=== PATIENT | male | born 1970 | race Caucasian/White ===

== ENCOUNTER 2018-10-27 10:23 | Emergency (ER) | payer MEDICAID ==
[~2018-10-27] VITALS: Ht 180.3 cm; Wt 136.0 kg
[~2018-10-27 10:23] MED LIST: GABA-532 PO; IBUP-1986 PO
[2018-10-27 10:37] VITALS: BP 131/111
--- NOTE | 2018-10-27 10:48 | NUR ---
pt to xray via wheelchair
[2018-10-27] MEDS ORDERED: LIDOcaine 1% w/epiNEPHrine 1:200,000 30ml vial IM ONE (12:00)
[2018-10-27] MEDS ORDERED: TETanus/Pertussis (Acell)/Diphther VAC/PF (Tdap-Adult) 0.5ml syringe IM ONE (12:00)
[2018-10-27] MEDS ORDERED: CEPH-572 PO (12:09)
[2018-10-27] MEDS ORDERED: HYDR-4353 PO (12:09)
== END 2018-10-27 14:33 | disposition home or self-care (01) ==
LOC: ER 10:24
DX: S91.312A Laceration without foreign body, left foot, initial encounter (principal); E78.00 Pure hypercholesterolemia, unspecified; F10.99 Alcohol use, unspecified with unspecified alcohol-induced disorder; Z86.14 Personal history of Methicillin resistant Staphylococcus aureus infection; Z88.1 Allergy status to other antibiotic agents; Z79.899 Other long term (current) drug therapy; Y90.9 Presence of alcohol in blood, level not specified; W25.XXXA Contact with sharp glass, initial encounter; Y93.89 Activity, other specified; Y92.89 Other specified places as the place of occurrence of the external cause; Y99.8 Other external cause status
CPT/HCPCS: 12001; 73630; 90471; 99283

== ENCOUNTER 2018-11-22 17:29 | Emergency (ER) | payer MEDICAID ==
[~2018-11-22] VITALS: Ht 182.9 cm; Wt 159.1 kg
[2018-11-22] MEDS ORDERED: iohexol 350MG/ML 100ml bottle IV ONE (21:29)
[2018-11-22 22:16] LABS: BASOPHILS % (AUTO) 0.2 % (0-1); EOSINOPHILS # (AUTO) 0.1 X10'3 (0-0.9); HEMATOCRIT 46.4 % (42.0-52.0); HEMOGLOBIN 15.6 g/dl (14.0-17.9); LYMPHOCYTES # (AUTO) 2.2 X10'3 (1.1-4.8); LYMPHOCYTES % (AUTO) 27.3 % (21-51); MEAN CORPUSCULAR HEMOGLOBIN 29.6 PG (27.0-31.0); MEAN CORPUSCULAR HGB CONC 33.6 g/dL (33.0-36.5); MEAN PLATELET VOLUME 6.1 FL (7.4-10.4); MONOCYTES # (AUTO) 0.5 X10'3 (0-0.9); MONOCYTES % (AUTO) 6.4 % (2-12); NEUTROPHILS # (AUTO) 5.3 X10'3 (1.8-7.7); NEUTROPHILS % (AUTO) 65.1 % (42-75); PLATELET COUNT 164 X10'3 (140-440); RED BLOOD COUNT 5.28 X10'6 (4.70-6.10); RED CELL DISTRIBUTION WIDTH 14.8 % (11.5-14.5); WHITE BLOOD COUNT 8.1 X10'3 (4.5-11.0)
[2018-11-22 22:36] LABS: ALANINE AMINOTRANSFERASE 58 U/L (12-78); ALBUMIN 3.7 G/DL (3.4-5.0); ALBUMIN/GLOBULIN RATIO 0.8 (1.1-1.5); ALKALINE PHOSPHATASE 92 IU/L (46-116); ANION GAP 10 (8-16); ASPARTATE AMINO TRANSFERASE 45 U/L (10-37); BILIRUBIN,TOTAL 0.5 MG/DL (0.1-1.0); BLOOD UREA NITROGEN 15 MG/DL (7-18); BUN/CREATININE RATIO 12.9 (5.4-32.0); CALCIUM 8.1 MG/DL (8.5-10.1); CHLORIDE 106 MMOL/L (99-107); CREATININE 1.16 MG/DL (0.60-1.10); GLUCOSE 115 MG/DL (70-104); MAGNESIUM 2.1 MG/DL (1.5-2.4); POTASSIUM 3.8 MMOL/L (3.5-5.1); SODIUM 144 MMOL/L (135-145); TOTAL CARBON DIOXIDE 27.9 MMOL/L (24-32); TOTAL PROTEIN 8.3 G/DL (6.4-8.2); eGFR 67 ML/MIN
[2018-11-22 23:32] VITALS: BP 141/82
[2018-11-23] MEDS ORDERED: CEFD300C3 PO (00:24)
[2018-11-23] MEDS ORDERED: AZIT250T83 PO (00:24)
[2018-11-23] MEDS ORDERED: CefTRIAXone/D5W-Rocephin 1gm 50 ML IV ONE (00:25)
[2018-11-23] MEDS ORDERED: azithromycin 250mg tablet PO ONE (00:25)
[2018-11-23] MEDS ORDERED: CefTRIAXone 1000mg IM Kit (w/lidocaine diluent) IM ONE (00:35)
== END 2018-11-23 01:05 | disposition home or self-care (01) ==
LOC: ER 17:29
DX: J18.9 Pneumonia, unspecified organism (principal); F10.10 Alcohol abuse, uncomplicated; E78.00 Pure hypercholesterolemia, unspecified; Z88.1 Allergy status to other antibiotic agents; Z79.899 Other long term (current) drug therapy
CPT/HCPCS: 36415; 71046; 71275; 80053; 83735; 84484; 85025; 96372; 99284; J0696; Q9967

== ENCOUNTER 2019-03-23 15:07 | Emergency (ER) | payer MEDICAID ==
[~2019-03-23] VITALS: Ht 182.9 cm; Wt 160.9 kg
[2019-03-23 15:52] LABS: BASOPHILS % (AUTO) 0.2 % (0-1); EOSINOPHILS # (AUTO) 0.1 X10'3 (0-0.9); EOSINOPHILS % (AUTO) 1.2 % (0-6); HEMATOCRIT 43.1 % (42.0-52.0); HEMOGLOBIN 14.7 g/dl (14.0-17.9); LYMPHOCYTES # (AUTO) 1.4 X10'3 (1.1-4.8); LYMPHOCYTES % (AUTO) 20.8 % (21-51); MEAN CORPUSCULAR HEMOGLOBIN 28.1 PG (27.0-31.0); MEAN CORPUSCULAR HGB CONC 34.1 g/dL (33.0-36.5); MEAN CORPUSCULAR VOLUME 82.3 FL (78-98); MEAN PLATELET VOLUME 6.4 FL (7.4-10.4); MONOCYTES # (AUTO) 0.4 X10'3 (0-0.9); MONOCYTES % (AUTO) 6.5 % (2-12); NEUTROPHILS # (AUTO) 4.9 X10'3 (1.8-7.7); NEUTROPHILS % (AUTO) 71.3 % (42-75); PLATELET COUNT 117 X10'3 (140-440); RED BLOOD COUNT 5.23 X10'6 (4.70-6.10); RED CELL DISTRIBUTION WIDTH 15.6 % (11.5-14.5); WHITE BLOOD COUNT 6.9 X10'3 (4.5-11.0)
[2019-03-23 16:04] LABS: ALANINE AMINOTRANSFERASE 69 U/L (12-78); ALBUMIN 3.7 G/DL (3.4-5.0); ALBUMIN/GLOBULIN RATIO 0.9 (1.1-1.5); ALKALINE PHOSPHATASE 90 IU/L (46-116); ANION GAP 10 (8-16); ASPARTATE AMINO TRANSFERASE 48 U/L (10-37); BILIRUBIN,TOTAL 0.4 MG/DL (0.1-1.0); BLOOD UREA NITROGEN 14 MG/DL (7-18); BUN/CREATININE RATIO 12.7 (5.4-32.0); CALCIUM 8.2 MG/DL (8.5-10.1); CHLORIDE 106 MMOL/L (99-107); GLUCOSE 111 MG/DL (70-104); POTASSIUM 3.9 MMOL/L (3.5-5.1); SODIUM 142 MMOL/L (135-145); TOTAL CARBON DIOXIDE 26.1 MMOL/L (24-32); TOTAL PROTEIN 7.6 G/DL (6.4-8.2); eGFR 72 ML/MIN
[2019-03-23 16:24] LABS: D-DIMER 0.68 MG/L FEU (0-0.50)
[2019-03-23] MEDS ORDERED: iohexol 350MG/ML 100ml bottle IV ONE (17:05)
[2019-03-23] MEDS ORDERED: AMOX-422 PO (17:21)
[2019-03-23] MEDS ORDERED: ALBU8HFA PO (17:21)
[2019-03-23] MEDS ORDERED: PRED20TA PO (17:21)
[2019-03-23] MEDS ORDERED: ipratropium/albuterol 3ml nebule NEB ONE (18:00)
[2019-03-23 19:36] VITALS: BP 161/95
== END 2019-03-23 19:37 | disposition home or self-care (01) ==
LOC: ER 15:07
DX: J18.9 Pneumonia, unspecified organism (principal); E78.00 Pure hypercholesterolemia, unspecified; Z86.14 Personal history of Methicillin resistant Staphylococcus aureus infection; Z88.1 Allergy status to other antibiotic agents; Z79.899 Other long term (current) drug therapy
CPT/HCPCS: 36415; 71045; 71275; 80053; 84484; 85025; 85379; 93005; 94640; 99284; Q9967; 94760

== ENCOUNTER 2019-04-21 19:14 | Emergency (ER) | payer MEDICAID ==
[~2019-04-21] VITALS: Ht 182.9 cm; Wt 163.6 kg
[~2019-04-21 19:14] MED LIST changes: +ALBU8HFA PO
--- NOTE | 2019-04-21 19:48 | NUR ---
EWELINA SALGADO, PATIENT'S MOTHER, CALLED SAYING THAT SHE HAS BEEN IN CONTACT WITH [facility] AND THEY ARE WILLING TO ACCEPT THE PATIENT ONCE HE IS MEDICALLY CLEARED AND HAS "WHATEVER PRESCRIPTION HE NEEDS FOR DETOX" Addendum: 04/21/19 at 1949 by JUDITH PATIENT IS IN 18 AT THIS TIME NOT ASSIGNED TO A NURSE OR PICKED UP BY A PROVIDER AT THIS TIME
--- NOTE | 2019-04-21 20:19 | NUR ---
PT STATES HES ''READY TO CHANGE." HE DOESN'T WANT TO DRINK ANYMORE. HIS LAST DRINK WAS LAST NIGHT AT 10PM. HE STATES HE WANTS TO DETOX AND WANTS TO GO TO REHAB.
[2019-04-21] MEDS ORDERED: normal saline 1000ML IV soln IV ONE (20:55)
[2019-04-21] MEDS ORDERED: thiamine 100mg/ml 2ml inj. IV ONE (20:55)
[2019-04-21] MEDS ORDERED: folic acid 1mg/0.2ml inj IV ONE (20:55)
[2019-04-21] MEDS ORDERED: thiamine inj. 100 MG, folic acid inj. 2 MG in normal saline 100ml IV soln 100 ML IV SCH (20:59)
[2019-04-21] MEDS ORDERED: ondansetron/PF 4mg/2ml inj IV ONE (21:00)
[2019-04-21] MEDS ORDERED: thiamine inj. 100 MG, folic acid inj. 2 MG in normal saline 100ml IV soln 100 ML IV ONE (21:00)
[2019-04-21 21:27] LABS: CLARITY,URINE CLEAR (Clear); COLOR,URINE YELLOW (Yellow); GLUCOSE, URINE NEGATIVE (Neg); KETONES,URINE NEGATIVE (Neg); LEUKOCYTE ESTERASE ,URINE NEGATIVE (Neg); NITRITES, URINE NEGATIVE (Neg); OCCULT BLOOD,URINE SMALL (Neg); PROTEIN,URINE 100 mg/dl (Neg); UROBILINOGEN,URINE 0.2 E.U/dL (0.2-1.0)
[2019-04-21 21:36] LABS: UA COLLECTION TYPE CLN CATCH MIDSTREAM
[2019-04-21 21:38] LABS: BACTERIA,URINE NONE SEEN /HPF (Neg); MUCUS STRANDS MODERATE /LPF (Neg); RBC,URINE 0-2 /HPF (0-2); SQUAMOUS EPITHELIAL CELL,UR FEW /LPF (FEW); WBC,URINE 0-4 /HPF (0-4)
[2019-04-21 21:39] LABS: URINE AMPHETAMINE SCREEN NEGATIVE (Neg); URINE BARBITUATE SCREEN NEGATIVE (Neg); URINE BENZODIAZEPINES SCREEN NEGATIVE (Neg); URINE CANNABINOID SCREEN NEGATIVE (Neg); URINE COCAINE SCREEN NEGATIVE (Neg); URINE METHADONE SCREEN NEGATIVE (Neg); URINE OPIATE SCREEN NEGATIVE (Neg); URINE PHENCYCLIDINE SCREEN NEGATIVE (Neg)
[2019-04-21 22:00] LABS: BASOPHILS % (AUTO) 0.4 % (0-1); EOSINOPHILS # (AUTO) 0.1 X10'3 (0-0.9); EOSINOPHILS % (AUTO) 1.4 % (0-6); HEMATOCRIT 46.9 % (42.0-52.0); LYMPHOCYTES # (AUTO) 2.3 X10'3 (1.1-4.8); LYMPHOCYTES % (AUTO) 36.3 % (21-51); MEAN CORPUSCULAR HEMOGLOBIN 29.1 PG (27.0-31.0); MEAN CORPUSCULAR HGB CONC 34.1 g/dL (33.0-36.5); MEAN CORPUSCULAR VOLUME 85.4 FL (78-98); MEAN PLATELET VOLUME 6.1 FL (7.4-10.4); MONOCYTES # (AUTO) 0.4 X10'3 (0-0.9); MONOCYTES % (AUTO) 6.2 % (2-12); NEUTROPHILS # (AUTO) 3.5 X10'3 (1.8-7.7); NEUTROPHILS % (AUTO) 55.7 % (42-75); PLATELET COUNT 150 X10'3 (140-440); RED BLOOD COUNT 5.49 X10'6 (4.70-6.10); WHITE BLOOD COUNT 6.3 X10'3 (4.5-11.0)
[2019-04-21 22:15] LABS: ALANINE AMINOTRANSFERASE 69 U/L (12-78); ALBUMIN 3.6 G/DL (3.4-5.0); ALKALINE PHOSPHATASE 90 IU/L (46-116); ANION GAP 9 (8-16); ASPARTATE AMINO TRANSFERASE 76 U/L (10-37); BILIRUBIN,TOTAL 0.3 MG/DL (0.1-1.0); BLOOD UREA NITROGEN 11 MG/DL (7-18); BUN/CREATININE RATIO 9.6 (5.4-32.0); CHLORIDE 106 MMOL/L (99-107); CREATININE 1.14 MG/DL (0.60-1.10); GLUCOSE 89 MG/DL (70-104); POTASSIUM 3.8 MMOL/L (3.5-5.1); SODIUM 146 MMOL/L (135-145); TOTAL CARBON DIOXIDE 30.8 MMOL/L (24-32); TOTAL PROTEIN 7.3 G/DL (6.4-8.2); eGFR 69 ML/MIN
[2019-04-21 22:23] LABS: MAGNESIUM 1.7 MG/DL (1.5-2.4)
[2019-04-21 22:37] LABS: ETHANOL 0.394 GM/DL (0.0-0.010)
--- NOTE | 2019-04-22 | NUR ---
Pt resting comfortably, respirations normal, no s/s of distress.
--- NOTE | 2019-04-22 01:00 | NUR ---
Pt resting comfortably, respirations normal, no s/s of distress.
--- NOTE | 2019-04-22 02:00 | NUR ---
Pt resting comfortably, respirations normal, no s/s of distress.
--- NOTE | 2019-04-22 03:00 | NUR ---
Pt resting comfortably, respirations normal, no s/s of distress.
--- NOTE | 2019-04-22 04:00 | NUR ---
Pt brought to overflow.
--- NOTE | 2019-04-22 05:37 | NUR ---
Pt resting comfortably, respirations normal, no s/s of distress.
--- NOTE | 2019-04-22 06:31 | NUR ---
PACKET HAS BEEN FAXED TO [facility]
--- NOTE | 2019-04-22 06:33 | NUR ---
pt resting quietly in bed.
--- NOTE | 2019-04-22 07:28 | NUR ---
pt mother, Michelle Noble ([phone]), called to check on pt. States pt needs to call [facility] and start the process of medical detox if he still wants to pursue that. Pts mom said pt needs to be medically clear from [facility] to go to [place]. Will talk to [facility] this AM.
--- NOTE | 2019-04-22 08:13 | NUR ---
resting quietly in bed.
[2019-04-22] MEDS ORDERED: LORazepam 1 MG tablet PO ONE ×3 (08:30→21:00)
--- NOTE | 2019-04-22 08:35 | NUR ---
pt woke up breathing heavy, c/o severe anxiety. Stating he feels like he might , asking this RN if you can from anxiety. Pt laying down trying to calm himself. No PRN's ordered. Dr. Petersen made aware and ordered 2mg Ativan PO, med given. Pt told to try and take deep breaths and relax in bed to decrease anxiety. Pt laying in bed now deep breathing, lights off, pt wrapped in blanket.
--- NOTE | 2019-04-22 09:16 | NUR ---
pt woke up from resting and states the Ativan helped him a lot and states he feels like he can breathe again. pt now using the phone calling family.
--- NOTE | 2019-04-22 10:39 | NUR ---
pt parents at bedside. pts mom states pt was accepted at [facility] but they aren't able to take him until tomorrow AM. Apparently, for the facility to accept him, pt needs to remain "medically clear", under supervision to make sure he is not drinking, until tomorrow AM. pts mom requesting we keep him here under a hold until tomorrow AM when pts parents can pick him up from here and take him to Rehab. Plan to talk to MD and [facility].
--- NOTE | 2019-04-22 11:29 | NUR ---
sitting up on side of bed talking to pt beside him. calm and speaking appropriatly. RN talked to Eddy from [facility] and told him about pt being accepted at [place]. Eddy said he will talk to pt after lunch and then talk to Dr. Petersen about POC. Pt came up to nurses station asking about POC. RN told him Eddy would speak to him after lunch. Pt calm and agreeable.
--- NOTE | 2019-04-22 12:30 | NUR ---
laying in bed resting.
--- NOTE | 2019-04-22 13:36 | NUR ---
pt sitting on side of bed c/o anxiety. wondering when he can get out of here. RN reminded pt that Eddy with [facility] will speak to him after lunch. Dr. Petersen aware of anxiety. Another dose of Ativan ordered and given. Pt states that medication does wonders for him.
--- NOTE | 2019-04-22 14:33 | NUR ---
discussed pt's increased agitation with EDMD Petersen. New order for Ativan 2mg IV followed by Haldol 5mg IM if Ativan is ineffective.
[2019-04-22] MEDS ORDERED: LORazepam 2 mg/ml vial IM ONE (14:35)
[2019-04-22] MEDS ORDERED: haloperidol lactate 5mg/ml inj IM ONE (14:35)
--- NOTE | 2019-04-22 15:02 | NUR ---
pt continues to ask when he will speak to [facility] so he can go home. spoke with Eddy with [facility] and he said he is waiting for pts etoh level to go down before he talks to him. STAT etoh level ordered and obtained. Pt getting restless. Ativan 2mg IM ordered and given.
--- NOTE | 2019-04-22 15:26 | NUR ---
pt anxious and walking around, s/p IM Ativan administration. pt told Dr. Petersen his mother is going to come get him tonight. RN called pts mother to clarify what she said. mom said the pt told her that we were kicking him out of the hospital. pts mom told the pt that IF we kick him out she will pick him up, but the better plan is to let pt stay the night and she will pick him up in the AM and take him to [place]. Dr. Petersen aware and stated pt could stay the night in the hospital and then his mother pick him up in the AM and take him to [place].
--- NOTE | 2019-04-22 16:29 | NUR ---
pt states he will stay here until the AM when his mother picks him up to take him to [place]. States he's feeling better and much less anxious. pt states his sister gives him anxiety meds occationally from [place] [facility] [place] and states "the meds you give me are much better".
--- NOTE | 2019-04-22 17:37 | NUR ---
resting in bed, calm and cooperative. pt states he's bored.
--- NOTE | 2019-04-22 18:30 | NUR ---
Pt resting comfortably, no s/s of distress.
--- NOTE | 2019-04-22 18:43 | NUR ---
Received report and assumed pt care.
--- NOTE | 2019-04-22 19:05 | NUR ---
Two visitors at bedside.
--- NOTE | 2019-04-22 19:44 | NUR ---
Pt resting comfortably, states he feels "better" than last night. No statements of si or hi.
--- NOTE | 2019-04-22 21:00 | NUR ---
Pt resting quietly, respirations normal, no s/s of distress.
--- NOTE | 2019-04-22 22:12 | NUR ---
Pt resting quietly, respirations normal, no s/s of distress.
--- NOTE | 2019-04-23 | NUR ---
Pt resting quietly, respirations normal, no s/s of distress.
--- NOTE | 2019-04-23 01:00 | NUR ---
Pt resting quietly, respirations normal, no s/s of distress.
--- NOTE | 2019-04-23 02:00 | NUR ---
Pt resting quietly, respirations normal, no s/s of distress.
--- NOTE | 2019-04-23 02:56 | NUR ---
Pt resting quietly, respirations normal, no s/s of distress.
--- NOTE | 2019-04-23 04:00 | NUR ---
Pt resting quietly, respirations normal, no s/s of distress.
--- NOTE | 2019-04-23 05:00 | NUR ---
Pt resting quietly, respirations normal, no s/s of distress.
--- NOTE | 2019-04-23 05:43 | NUR ---
Pt resting quietly, respirations normal, no s/s of distress.
[2019-04-23 05:48] VITALS: BP 152/102
--- NOTE | 2019-04-23 06:35 | NUR ---
resting quietly in bed. Addendum: 04/23/19 at 0635 by MORGAN pt asked for the phone. pts mom called earlier during shift change, asked to call back after shift change. pt to be d/c'd this AM to [facility].
[2019-04-23] MEDS ORDERED: LORazepam 1 MG tablet PO ONE (07:00)
--- NOTE | 2019-04-23 07:00 | NUR ---
pt stating anxiety this AM about going to [place]. pt wants to get clean but a little anxious. RN spoke with pts mom on the phone. Plan for mom to come see pt about 0800 and mom and pt call [facility] to make sure pt can be admitted there this AM. Dr. Petersen aware of plan, will notify MD the result of the phone call to [place] and if d/c order is needed. MD aware of pts anxiety this AM and ordered Ativan, will administer.
[2019-04-23] MEDS ORDERED: CHLO25CA10 PO (08:34)
--- NOTE | 2019-04-23 08:42 | NUR ---
pt going back and forth about going to [place] for Rehab. Pt wanting to go then not wanting to go. Pt mom says if she picks him up for d/c she will only take him to [place] for Rehab. pt stated he didn't want to go to [place] then pts mom left. Pt is d/c ready. After talking to pt he said he would go to [place] "to listen to what they have to say". Pts mom said she could be back at the hospital to pick him up at 0930. pt then said he would just call his girlfriend to come get him.
--- NOTE | 2019-04-23 09:06 | NUR ---
pt is discharged and will be picked up by girlfrienNiurka rivas, RN called Niurka to verify she will pick him up. Niurka states she will take pt directly to [facility] when she picks him up. Pt states he will hear what [facility] has to say and see what they can do for him. Pt sent with a Rx for 5 days worth of Librium. Pt and girlfriend educated on Librium Rx and to only take one as needed for anxiety, both pt and girlfriend verbalized understanding.
== END 2019-04-23 10:28 | disposition home or self-care (01) ==
LOC: ER 19:15
DX: F10.129 Alcohol abuse with intoxication, unspecified (principal); E78.00 Pure hypercholesterolemia, unspecified; Z86.14 Personal history of Methicillin resistant Staphylococcus aureus infection; Z87.891 Personal history of nicotine dependence; Z72.89 Other problems related to lifestyle; Z88.1 Allergy status to other antibiotic agents; Z79.899 Other long term (current) drug therapy; Y90.0 Blood alcohol level of less than 20 mg/100 ml
CPT/HCPCS: 36415; 80053; 80305; 80320; 81001; 83735; 84443; 85025; 93005; 96372; 96374; 99284; J2060; J2405; J7030; 99285

== ENCOUNTER 2020-05-08 15:22 | Emergency (ER) | payer MEDICAID ==
[~2020-05-08] VITALS: Ht 182.9 cm; Wt 145.3 kg
[~2020-05-08 15:22] MED LIST changes: -ALBU8HFA PO; +CHLO25CA10 PO
[2020-05-08] MEDS ORDERED: magnesium oxide 400mg tablet PO ONE (16:10)
[2020-05-08] MEDS ORDERED: normal saline 1000ML IV soln IVB ONE (16:10)
[2020-05-08] MEDS ORDERED: thiamine 100mg tablet PO ONE (16:10)
[2020-05-08] MEDS ORDERED: phenobarbital inj 260 MG in normal saline 100ml IV soln 100 ML IV ONE (16:10)
[2020-05-08] MEDS ORDERED: phenobarbital inj 260 MG in normal saline 100ml IV soln 98 ML IV ONE (16:10)
[2020-05-08 16:32] LABS: BASOPHILS % (AUTO) 0.5 % (0-1); EOSINOPHILS % (AUTO) 0.4 % (0-6); HEMATOCRIT 43.8 % (42.0-52.0); HEMOGLOBIN 14.7 g/dl (14.0-17.9); LYMPHOCYTES # (AUTO) 1.6 X10'3 (1.1-4.8); LYMPHOCYTES % (AUTO) 24.7 % (21-51); MEAN CORPUSCULAR HEMOGLOBIN 27.9 PG (27.0-31.0); MEAN CORPUSCULAR HGB CONC 33.7 g/dL (33.0-36.5); MEAN CORPUSCULAR VOLUME 82.8 FL (78-98); MEAN PLATELET VOLUME 6.3 FL (7.4-10.4); MONOCYTES # (AUTO) 0.3 X10'3 (0-0.9); MONOCYTES % (AUTO) 4.4 % (2-12); NEUTROPHILS # (AUTO) 4.6 X10'3 (1.8-7.7); PLATELET COUNT 140 X10'3 (140-440); RED BLOOD COUNT 5.28 X10'6 (4.70-6.10); RED CELL DISTRIBUTION WIDTH 15.1 % (11.5-14.5); WHITE BLOOD COUNT 6.5 X10'3 (4.5-11.0)
[2020-05-08 16:48] LABS: ALANINE AMINOTRANSFERASE 63 U/L (12-78); ALBUMIN 3.8 G/DL (3.4-5.0); ALBUMIN/GLOBULIN RATIO 0.9 (1.1-1.5); ALKALINE PHOSPHATASE 105 IU/L (46-116); ANION GAP 12 (8-16); ASPARTATE AMINO TRANSFERASE 68 U/L (10-37); BILIRUBIN,TOTAL 0.5 MG/DL (0.1-1.0); BLOOD UREA NITROGEN 14 MG/DL (7-18); BUN/CREATININE RATIO 14.3 (5.4-32.0); CALCIUM 8.5 MG/DL (8.5-10.1); CHLORIDE 103 MMOL/L (99-107); CREATININE 0.98 MG/DL (0.60-1.10); GLUCOSE 124 MG/DL (70-104); POTASSIUM 3.9 MMOL/L (3.5-5.1); SODIUM 141 MMOL/L (135-145); TOTAL CARBON DIOXIDE 25.9 MMOL/L (24-32); TOTAL PROTEIN 8.2 G/DL (6.4-8.2); eGFR 82 ML/MIN
[2020-05-08 16:49] LABS: MAGNESIUM 2.2 MG/DL (1.5-2.4)
[2020-05-08 16:50] LABS: ETHANOL 0.359 GM/DL (0.0-0.010)
[2020-05-08] MEDS ORDERED: phenobarbital inj 130 MG in normal saline 100ml IV soln 100 ML IV ONE (17:25)
[2020-05-08 21:04] VITALS: BP 111/66
== END 2020-05-08 21:35 | disposition home or self-care (01) ==
LOC: ER 15:23
DX: F10.239 Alcohol dependence with withdrawal, unspecified (principal); F10.229 Alcohol dependence with intoxication, unspecified; E78.00 Pure hypercholesterolemia, unspecified; Z86.14 Personal history of Methicillin resistant Staphylococcus aureus infection; Z72.89 Other problems related to lifestyle; Z88.1 Allergy status to other antibiotic agents; Z79.899 Other long term (current) drug therapy; Y90.9 Presence of alcohol in blood, level not specified
CPT/HCPCS: 36415; 80053; 80320; 82948; 83735; 85025; 93005; 96365; 96367; 99285; J2560; J7030

== ENCOUNTER 2020-05-17 14:52 | Emergency (ER) | payer MEDICAID ==
[2020-05-18] MEDS ORDERED: GABA-534 PO (04:57)
== END 2020-05-17 17:16 | disposition left against medical advice (07) ==
LOC: ER 14:52
DX: F15.129 Other stimulant abuse with intoxication, unspecified (principal); Z53.21 Procedure and treatment not carried out due to patient leaving prior to being seen by health care provider

== ENCOUNTER 2020-05-18 04:40 | Emergency (ER) | payer MEDICAID ==
[~2020-05-18] VITALS: Ht 182.9 cm; Wt 159.1 kg
[2020-05-18] MEDS ORDERED: GABA-534 PO (04:57)
[2020-05-18] MEDS ORDERED: diazepam 5mg tablet PO ONE (05:00)
[2020-05-18] MEDS ORDERED: gabapentin 400mg capsule PO SCH (05:00)
[2020-05-18] MEDS ORDERED: gabapentin 400mg capsule PO ONE (05:00)
[2020-05-18 05:21] VITALS: BP 159/118
== END 2020-05-18 05:22 | disposition home or self-care (01) ==
LOC: ER 04:41
DX: F10.239 Alcohol dependence with withdrawal, unspecified (principal); E78.00 Pure hypercholesterolemia, unspecified; Z86.14 Personal history of Methicillin resistant Staphylococcus aureus infection; Z88.1 Allergy status to other antibiotic agents; Z79.899 Other long term (current) drug therapy; Y90.9 Presence of alcohol in blood, level not specified
CPT/HCPCS: 99283

== ENCOUNTER 2020-10-17 14:19 | Emergency (ER) | payer MEDICAID ==
[~2020-10-17] VITALS: Ht 182.9 cm; Wt 159.0 kg
[~2020-10-17 14:19] MED LIST changes: +GABA-534 PO
--- NOTE | 2020-10-17 15:08 | NUR ---
Pt in somulent but answers questions and follows commads. He is cooperative. C/O generalized pain and +nausea.
[2020-10-17] MEDS ORDERED: normal saline 1000ML IV soln IVB ONE (15:20)
[2020-10-17] MEDS ORDERED: ondansetron/PF 4mg/2ml inj IV ONE (15:20)
[2020-10-17] MEDS ORDERED: normal saline 1000ml 1,000 ML IV ONE (15:20)
[2020-10-17] MEDS ORDERED: magnesium 2GM in 50ml NS 50 ML IV ONE (15:25)
[2020-10-17 15:46] LABS: BASOPHILS # (AUTO) 0.1 X10'3 (0-0.2); BASOPHILS % (AUTO) 0.4 % (0-1); EOSINOPHILS % (AUTO) 0.1 % (0-6); HEMATOCRIT 42.9 % (42.0-52.0); HEMOGLOBIN 14.5 g/dl (14.0-17.9); LYMPHOCYTES # (AUTO) 1.7 X10'3 (1.1-4.8); LYMPHOCYTES % (AUTO) 11.4 % (21-51); MEAN CORPUSCULAR HEMOGLOBIN 27.1 PG (27.0-31.0); MEAN CORPUSCULAR HGB CONC 33.7 g/dL (33.0-36.5); MEAN CORPUSCULAR VOLUME 80.5 FL (78-98); MONOCYTES # (AUTO) 0.8 X10'3 (0-0.9); MONOCYTES % (AUTO) 5.3 % (2-12); NEUTROPHILS # (AUTO) 12.1 X10'3 (1.8-7.7); NEUTROPHILS % (AUTO) 82.8 % (42-75); PLATELET COUNT 272 X10'3 (140-440); RED BLOOD COUNT 5.33 X10'6 (4.70-6.10); RED CELL DISTRIBUTION WIDTH 13.6 % (11.5-14.5); WHITE BLOOD COUNT 14.6 X10'3 (4.5-11.0)
[2020-10-17 16:07] LABS: ALANINE AMINOTRANSFERASE 71 U/L (12-78); ALBUMIN 3.8 G/DL (3.4-5.0); ALBUMIN/GLOBULIN RATIO 0.9 (1.1-1.5); ALKALINE PHOSPHATASE 106 IU/L (46-116); ANION GAP 20 (8-16); BLOOD UREA NITROGEN 19 MG/DL (7-18); BUN/CREATININE RATIO 14.8 (5.4-32.0); CALCIUM 8.2 MG/DL (8.5-10.1); CHLORIDE 100 MMOL/L (99-107); CREATININE 1.28 MG/DL (0.60-1.10); GLUCOSE 100 MG/DL (70-104); LIPASE < 50 U/L (73-393); MAGNESIUM 2.3 MG/DL (1.5-2.4); SODIUM 140 MMOL/L (135-145); TOTAL CARBON DIOXIDE 19.9 MMOL/L (24-32); TOTAL PROTEIN 8.1 G/DL (6.4-8.2); eGFR 60 ML/MIN
[2020-10-17 16:08] LABS: ASPARTATE AMINO TRANSFERASE 100 U/L (10-37); POTASSIUM 4.3 MMOL/L (3.5-5.1)
[2020-10-17 16:09] LABS: ETHANOL 0.365 GM/DL (0.0-0.010)
[2020-10-17 19:01] LABS: COLOR,URINE YELLOW (Yellow); GLUCOSE, URINE NEGATIVE (Neg); KETONES,URINE 15 mg/dl (Neg); LEUKOCYTE ESTERASE ,URINE NEGATIVE (Neg); NITRITES, URINE NEGATIVE (Neg); OCCULT BLOOD,URINE MODERATE (Neg); PH,URINE 5.5 (4.8-8.0); PROTEIN,URINE 100 mg/dl (Neg); UROBILINOGEN,URINE 0.2 E.U/dL (0.2-1.0)
[2020-10-17] MEDS ORDERED: CHLO25CA10 PO (19:03)
[2020-10-17] MEDS ORDERED: PROM12.512 PO (19:03)
[2020-10-17 19:05] LABS: URINE AMPHETAMINE SCREEN NEGATIVE (Neg); URINE BARBITUATE SCREEN NEGATIVE (Neg); URINE BENZODIAZEPINES SCREEN NEGATIVE (Neg); URINE CANNABINOID SCREEN NEGATIVE (Neg); URINE COCAINE SCREEN NEGATIVE (Neg); URINE METHADONE SCREEN NEGATIVE (Neg); URINE OPIATE SCREEN NEGATIVE (Neg); URINE PHENCYCLIDINE SCREEN NEGATIVE (Neg)
[2020-10-17] MEDS ORDERED: chlordiazePOXIDE 25mg capsule PO ONE (19:05)
[2020-10-17 19:12] LABS: UA COLLECTION TYPE VOIDED
[2020-10-17 19:13] LABS: CLARITY,URINE SLIGHTLY CLOUDY (Clear)
[2020-10-17 19:17] LABS: BACTERIA,URINE NONE SEEN /HPF (Neg); MUCUS STRANDS MODERATE /LPF (Neg); RBC,URINE 0-2 /HPF (0-2); SQUAMOUS EPITHELIAL CELL,UR FEW /LPF (FEW); WBC,URINE 0-4 /HPF (0-4)
[2020-10-17 19:18] LABS: HYALINE CASTS 0-3 /LPF (NEGATIVE)
--- NOTE | 2020-10-17 19:30 | NUR ---
Pt given and understands d/c instructions. Ambulatory with a slow steady gait. MD aware of pt's heart rate.
[2020-10-17 19:35] VITALS: BP 128/80
== END 2020-10-17 19:37 | disposition home or self-care (01) ==
LOC: ER 14:20
DX: F10.929 Alcohol use, unspecified with intoxication, unspecified (principal); Z04.1 Encounter for examination and observation following transport accident; Y90.9 Presence of alcohol in blood, level not specified
CPT/HCPCS: 36415; 80053; 80305; 80320; 81001; 83690; 83735; 85025; 93005; 96365; 96366; 96375; 99285; J2405; J3475; J7030

== ENCOUNTER 2020-11-18 07:48 | Emergency (ER) | payer MEDICAID ==
[~2020-11-18] VITALS: Ht 182.9 cm; Wt 155.1 kg
[~2020-11-18 07:48] MED LIST changes: +PROM12.512 PO
[2020-11-18 08:51] LABS: BASOPHILS % (AUTO) 0.3 % (0-1); EOSINOPHILS # (AUTO) 0.1 X10'3 (0-0.9); EOSINOPHILS % (AUTO) 0.8 % (0-6); HEMATOCRIT 39.6 % (42.0-52.0); HEMOGLOBIN 13.3 g/dl (14.0-17.9); LYMPHOCYTES # (AUTO) 0.8 X10'3 (1.1-4.8); LYMPHOCYTES % (AUTO) 8.9 % (21-51); MEAN CORPUSCULAR HEMOGLOBIN 29.3 PG (27.0-31.0); MEAN CORPUSCULAR HGB CONC 33.7 g/dL (33.0-36.5); MEAN CORPUSCULAR VOLUME 86.8 FL (78-98); MEAN PLATELET VOLUME 6.4 FL (7.4-10.4); MONOCYTES # (AUTO) 0.8 X10'3 (0-0.9); MONOCYTES % (AUTO) 9.5 % (2-12); NEUTROPHILS # (AUTO) 6.9 X10'3 (1.8-7.7); NEUTROPHILS % (AUTO) 80.5 % (42-75); PLATELET COUNT 123 X10'3 (140-440); RED BLOOD COUNT 4.56 X10'6 (4.70-6.10); WHITE BLOOD COUNT 8.5 X10'3 (4.5-11.0)
[2020-11-18 08:58] LABS: ALANINE AMINOTRANSFERASE 53 U/L (12-78); ALBUMIN 3.2 G/DL (3.4-5.0); ALBUMIN/GLOBULIN RATIO 0.7 (1.1-1.5); ALKALINE PHOSPHATASE 115 IU/L (46-116); ANION GAP 10 (8-16); ASPARTATE AMINO TRANSFERASE 43 U/L (10-37); BILIRUBIN,TOTAL 0.6 MG/DL (0.1-1.0); BLOOD UREA NITROGEN 13 MG/DL (7-18); BUN/CREATININE RATIO 11.1 (5.4-32.0); CALCIUM 8.4 MG/DL (8.5-10.1); CHLORIDE 104 MMOL/L (99-107); CREATININE 1.17 MG/DL (0.60-1.10); GLUCOSE 102 MG/DL (70-104); POTASSIUM 3.9 MMOL/L (3.5-5.1); SODIUM 139 MMOL/L (135-145); TOTAL CARBON DIOXIDE 25.2 MMOL/L (24-32); TOTAL PROTEIN 7.8 G/DL (6.4-8.2); eGFR 66 ML/MIN
[2020-11-18 09:51] LABS: ANISOCYTOSIS 2+; PLATELET ESTIMATE DECREASED
[2020-11-18] MEDS ORDERED: AZIT500T9 PO (10:41)
[2020-11-18 10:54] LABS: D-DIMER 0.78 MG/L FEU (0-0.50)
[2020-11-18] MEDS ORDERED: iohexol 350MG/ML 100ml bottle IV ONE (11:14)
[2020-11-18] MEDS ORDERED: LORazepam 1 MG tablet PO ONE (11:25)
--- NOTE | 2020-11-18 11:31 | NUR ---
Spoke with Samson MONTOYA regarding heart rate of 160 beats/min, Samson MONTOYA gave verbal order for a repeat EKG.
--- NOTE | 2020-11-18 11:33 | NUR ---
Samson MONTOYA stated to take patient to CT first and then perform EKG.
[2020-11-18] MEDS ORDERED: normal saline 1000ml 1,000 ML IV ONE (11:55)
[2020-11-18] MEDS ORDERED: labetalol 20mg/4ml (5mg/ml) syringe IV ONE ×3 (13:15→15:50)
[2020-11-18 13:25] LABS: TROPONIN I < 0.04 NG/ML (0.0-0.05)
[2020-11-18] MEDS ORDERED: chlordiazePOXIDE 25mg capsule PO ONE (14:40)
[2020-11-18 15:53] LABS: ETHANOL < 0.010 GM/DL (0.0-0.010)
[2020-11-18] MEDS ORDERED: thiamine 100mg tablet PO ONE (16:00)
[2020-11-18] MEDS ORDERED: magnesium oxide 400mg tablet PO ONE (16:00)
[2020-11-18] MEDS ORDERED: normal saline 1000ML IV soln IVB ONE (16:00)
[2020-11-18] MEDS ORDERED: phenobarbital inj 260 MG in normal saline 100ml IV soln 98 ML IV ONE (16:00)
[2020-11-18] MEDS ORDERED: diltiazem 5mg/ml 5ml inj. IV ONE (16:00)
[2020-11-18] MEDS ORDERED: phenobarbital inj 260 MG in normal saline 100ml IV soln 100 ML IV ONE (16:00)
[2020-11-18] MEDS ORDERED: APIX5TAB3 PO (17:03)
[2020-11-18] MEDS ORDERED: SOTA80TA73 PO (17:03)
[2020-11-18 17:07] LABS: URINE AMPHETAMINE SCREEN NEGATIVE (Neg); URINE BARBITUATE SCREEN NEGATIVE (Neg); URINE BENZODIAZEPINES SCREEN POSITIVE (Neg); URINE CANNABINOID SCREEN POSITIVE (Neg); URINE COCAINE SCREEN NEGATIVE (Neg); URINE METHADONE SCREEN NEGATIVE (Neg); URINE OPIATE SCREEN NEGATIVE (Neg); URINE PHENCYCLIDINE SCREEN NEGATIVE (Neg)
[2020-11-18 17:24] VITALS: BP 104/80
--- NOTE | 2020-11-18 17:24 | NUR ---
PT DECIDED TO LEAVE AMA. THIS RN, AND LINDSAY PORTILLO SPOKE WITH PT EXTENSIVLY RE: HIS CURRENT DX, A-FIB, RAPID HEART RATE WITH IRRG, PNA, ALONG WITH ETOH WITHDRAWL AND REASONS TO STAY FOR CONTINUED MEDICATIONS AND MONITORING. PT STATES HE UNDERSTANDS RISKS UP TO INCLUDING . PT SIGNED AMA FORM
== END 2020-11-18 17:35 | disposition left against medical advice (07) ==
LOC: ER 07:49
DX: F10.239 Alcohol dependence with withdrawal, unspecified (principal); Z20.822 Contact with and (suspected) exposure to COVID-19; J18.9 Pneumonia, unspecified organism; I48.91 Unspecified atrial fibrillation; R04.2 Hemoptysis; R06.02 Shortness of breath; E78.00 Pure hypercholesterolemia, unspecified; Z86.14 Personal history of Methicillin resistant Staphylococcus aureus infection; Z72.89 Other problems related to lifestyle; Z88.1 Allergy status to other antibiotic agents; Z79.2 Long term (current) use of antibiotics; Z79.899 Other long term (current) drug therapy; Y90.0 Blood alcohol level of less than 20 mg/100 ml
CPT/HCPCS: 36415; 71045; 71275; 80053; 80305; 80320; 83735; 83880; 84145; 84484; 85008; 85025; 85379; 87635; 93005; 96361; 96365; 96375; 96376; 99285; C9803; J2560; J7030; Q9967; J3490

== ENCOUNTER 2020-11-20 13:42 | Inpatient (IN) | payer MEDICAID ==
[~2020-11-20] VITALS: Ht 182.9 cm; Wt 168.2 kg
[~2020-11-20 13:42] MED LIST changes: +APIX5TAB3 PO; +AZIT500T9 PO; +SOTA80TA73 PO
[2020-11-20] MEDS ORDERED: normal saline 1000ML IV soln IVB ONE (14:40)
[2020-11-20] MEDS ORDERED: acetaminophen 325mg tablet PO ONE (14:40)
[2020-11-20 14:46] LABS: BASOPHILS % (AUTO) 0.2 % (0-1); EOSINOPHILS # (AUTO) 0.2 X10'3 (0-0.9); EOSINOPHILS % (AUTO) 1.6 % (0-6); HEMATOCRIT 38.7 % (42.0-52.0); HEMOGLOBIN 13.1 g/dl (14.0-17.9); LYMPHOCYTES # (AUTO) 1.1 X10'3 (1.1-4.8); LYMPHOCYTES % (AUTO) 11.2 % (21-51); MEAN CORPUSCULAR HEMOGLOBIN 29.5 PG (27.0-31.0); MEAN CORPUSCULAR HGB CONC 33.9 g/dL (33.0-36.5); MEAN PLATELET VOLUME 6.9 FL (7.4-10.4); MONOCYTES # (AUTO) 1.2 X10'3 (0-0.9); MONOCYTES % (AUTO) 12.4 % (2-12); NEUTROPHILS # (AUTO) 7.3 X10'3 (1.8-7.7); NEUTROPHILS % (AUTO) 74.6 % (42-75); PLATELET COUNT 217 X10'3 (140-440); RED BLOOD COUNT 4.45 X10'6 (4.70-6.10); RED CELL DISTRIBUTION WIDTH 18.2 % (11.5-14.5); WHITE BLOOD COUNT 9.8 X10'3 (4.5-11.0)
[2020-11-20 14:59] LABS: ALANINE AMINOTRANSFERASE 39 U/L (12-78); ALBUMIN/GLOBULIN RATIO 0.6 (1.1-1.5); ALKALINE PHOSPHATASE 94 IU/L (46-116); ANION GAP 11 (8-16); ASPARTATE AMINO TRANSFERASE 31 U/L (10-37); BILIRUBIN,TOTAL 1.1 MG/DL (0.1-1.0); BLOOD UREA NITROGEN 9 MG/DL (7-18); BUN/CREATININE RATIO 7.8 (5.4-32.0); CALCIUM 8.9 MG/DL (8.5-10.1); CHLORIDE 100 MMOL/L (99-107); CREATININE 1.15 MG/DL (0.60-1.10); GLUCOSE 104 MG/DL (70-104); POTASSIUM 3.6 MMOL/L (3.5-5.1); SODIUM 138 MMOL/L (135-145); TOTAL CARBON DIOXIDE 27.4 MMOL/L (24-32); TOTAL PROTEIN 7.8 G/DL (6.4-8.2); eGFR 68 ML/MIN
[2020-11-20 15:00] LABS: D-DIMER 0.82 MG/L FEU (0-0.50); PARTIAL THROMBOPLASTIN TIME 36 SECONDS (22-32)
[2020-11-20 15:28] LABS: LIPASE 81 U/L (73-393); MAGNESIUM 1.9 MG/DL (1.5-2.4)
[2020-11-20 15:30] LABS: ETHANOL < 0.010 GM/DL (0.0-0.010)
[2020-11-20] MEDS ORDERED: iohexol 350MG/ML 100ml bottle IV ONE (16:36)
--- NOTE | 2020-11-20 16:40 | NUR ---
TO CT VIA WC
[2020-11-20] MEDS ORDERED: CefTRIAXone/D5W-Rocephin 1gm 50 ML IV ONE (17:20)
[2020-11-20 17:23] LABS: URINE AMPHETAMINE SCREEN NEGATIVE (Neg); URINE BARBITUATE SCREEN POSITIVE (Neg); URINE BENZODIAZEPINES SCREEN POSITIVE (Neg); URINE CANNABINOID SCREEN POSITIVE (Neg); URINE COCAINE SCREEN NEGATIVE (Neg); URINE METHADONE SCREEN NEGATIVE (Neg); URINE OPIATE SCREEN NEGATIVE (Neg); URINE PHENCYCLIDINE SCREEN NEGATIVE (Neg)
[2020-11-20] MEDS ORDERED: magnesium hydroxide 30ml (MOM) UD suspension PO PRN (17:40)
[2020-11-20] MEDS ORDERED: mag hydrox/Alum hydrox/simeth 30ml oral suspension PO PRN (17:40)
[2020-11-20] MEDS ORDERED: acetaminophen 325mg tablet PO PRN (17:40)
[2020-11-20] MEDS ORDERED: ondansetron/PF 4mg/2ml inj IV PRN (17:40)
[2020-11-20] MEDS ORDERED: morphine 2 MG/ML inj. syringe IV PRN (17:40)
[2020-11-20] MEDS ORDERED: APIX5TAB3 PO (18:16)
[2020-11-20] MEDS ORDERED: CHLO25CA10 PO (18:16)
[2020-11-20] MEDS ORDERED: AZIT500T9 PO (18:16)
[2020-11-20] MEDS ORDERED: SOTA80TA46 PO (18:16)
[2020-11-20] MEDS ORDERED: IBUP-1986 PO (18:16)
[2020-11-20] MEDS: normal saline 1000ml 1,000 ML IV SCH (18:27)
[2020-11-20] MEDS ORDERED: chlordiazePOXIDE 25mg capsule PO PRN (19:55)
[2020-11-20] MEDS: docusate sod 100mg capsule PO SCH (20:00)
--- NOTE | 2020-11-20 20:07 | NUR ---
PAGER ID: [phone] MESSAGE: [phone] RE: BED 11 JOS NEEDS SOMETHING FOR COUGH PLEASE.
[2020-11-20] MEDS ORDERED: albuterol 2.5 MG/3 ML nebule NEB PRN (20:10)
[2020-11-20] MEDS: apixaban 5mg tablet PO SCH (20:25)
[2020-11-20] MEDS: sotalol 80mg tablet PO SCH (20:25)
[2020-11-20] MEDS: cefepime 2g/NS 100ml ADVANTAGE 100 ML IV SCH (20:27)
[2020-11-20] MEDS ORDERED: guaiFENesin 200 MG/10 ML oral syrup UD cup PO PRN (20:30)
[2020-11-20] MEDS: benzonatate 100mg capsule PO PRN (21:25)
[2020-11-20] MEDS: chlordiazePOXIDE 5mg capsule PO PRN (21:26)
[2020-11-21] MEDS: normal saline 1000ml 1,000 ML IV SCH (03:42)
[2020-11-21] MEDS: HYDROcodone/acetaminophen 5mg/325mg tablet PO PRN ×3 (03:53→22:07)
[2020-11-21 04:19] LABS: BASOPHILS % (AUTO) 0.3 % (0-1); EOSINOPHILS # (AUTO) 0.3 X10'3 (0-0.9); EOSINOPHILS % (AUTO) 3.1 % (0-6); HEMATOCRIT 36.7 % (42.0-52.0); HEMOGLOBIN 12.4 g/dl (14.0-17.9); LYMPHOCYTES % (AUTO) 12.5 % (21-51); MEAN CORPUSCULAR HEMOGLOBIN 29.1 PG (27.0-31.0); MEAN CORPUSCULAR HGB CONC 33.8 g/dL (33.0-36.5); MEAN CORPUSCULAR VOLUME 86.3 FL (78-98); MEAN PLATELET VOLUME 6.7 FL (7.4-10.4); MONOCYTES # (AUTO) 1.3 X10'3 (0-0.9); MONOCYTES % (AUTO) 14.9 % (2-12); NEUTROPHILS # (AUTO) 5.8 X10'3 (1.8-7.7); NEUTROPHILS % (AUTO) 69.2 % (42-75); PLATELET COUNT 224 X10'3 (140-440); RED BLOOD COUNT 4.26 X10'6 (4.70-6.10); RED CELL DISTRIBUTION WIDTH 18.3 % (11.5-14.5); WHITE BLOOD COUNT 8.4 X10'3 (4.5-11.0)
[2020-11-21 04:25] LABS: ALANINE AMINOTRANSFERASE 31 U/L (12-78); ALBUMIN 2.6 G/DL (3.4-5.0); ALBUMIN/GLOBULIN RATIO 0.6 (1.1-1.5); ALKALINE PHOSPHATASE 85 IU/L (46-116); ANION GAP 14 (8-16); ASPARTATE AMINO TRANSFERASE 23 U/L (10-37); BILIRUBIN,TOTAL 0.8 MG/DL (0.1-1.0); BLOOD UREA NITROGEN 12 MG/DL (7-18); BUN/CREATININE RATIO 12.1 (5.4-32.0); CALCIUM 8.3 MG/DL (8.5-10.1); CHLORIDE 103 MMOL/L (99-107); CREATININE 0.99 MG/DL (0.60-1.10); GLUCOSE 105 MG/DL (70-104); POTASSIUM 3.2 MMOL/L (3.5-5.1); SODIUM 140 MMOL/L (135-145); TOTAL CARBON DIOXIDE 22.9 MMOL/L (24-32); TOTAL PROTEIN 7.1 G/DL (6.4-8.2); eGFR 80 ML/MIN
[2020-11-21] MEDS: temazepam 15mg capsule PO SCH ×2 (05:44→21:00)
[2020-11-21] MEDS: cefepime 2g/NS 100ml ADVANTAGE 100 ML IV SCH ×2 (07:44→20:00)
[2020-11-21] MEDS: apixaban 5mg tablet PO SCH ×2 (07:44→20:00)
[2020-11-21] MEDS: ibuprofen tablet 400 MG TABLET PO SCH ×3 (07:44→18:07)
[2020-11-21] MEDS: docusate sod 100mg capsule PO SCH ×2 (07:45→20:00)
[2020-11-21] MEDS: sotalol 80mg tablet PO SCH ×2 (08:00→20:00)
[2020-11-21] MEDS ORDERED: enoxaparin 40mg/0.4ml syringe SUBCUT SCH (08:00)
[2020-11-21] MEDS ORDERED: potassium Cl 20 mEq SR tablet PO STA (13:35)
[2020-11-21] MEDS ORDERED: ondansetron 4mg rapidly disintigrating tab PO PRN (14:25)
[2020-11-21] MEDS: LORazepam 0.5 MG tablet PO PRN (18:07)
[2020-11-21] MEDS: lactobacillus rhamnosus 10,000 MMU CELLS/CAPSULE PO SCH (20:00)
[2020-11-21] MEDS ORDERED: temazepam 15mg capsule PO SCH (21:00)
[2020-11-22] MEDS: HYDROcodone/acetaminophen 5mg/325mg tablet PO PRN ×2 (03:01→09:09)
[2020-11-22] MEDS: LORazepam 0.5 MG tablet PO PRN ×2 (05:58→13:30)
--- NOTE | 2020-11-22 07:05 | NUR ---
PT PLACED ON MONITOR AND THEN KEEPS TAKING MONITOR LEADS AND SPO2 MONITOR OFF.
[2020-11-22] MEDS ORDERED: furosemide 10 MG/1 ML 10ml inj IV ONE (08:40)
[2020-11-22] MEDS: ibuprofen tablet 400 MG TABLET PO SCH ×2 (09:08→13:31)
[2020-11-22] MEDS: benzonatate 100mg capsule PO PRN (09:08)
[2020-11-22] MEDS: apixaban 5mg tablet PO SCH (09:08)
[2020-11-22] MEDS: lactobacillus rhamnosus 10,000 MMU CELLS/CAPSULE PO SCH (09:08)
[2020-11-22] MEDS: docusate sod 100mg capsule PO SCH (09:08)
[2020-11-22] MEDS: sotalol 80mg tablet PO SCH (09:13)
[2020-11-22] MEDS: chlordiazePOXIDE 5mg capsule PO PRN (09:18)
--- NOTE | 2020-11-22 09:32 | NUR ---
Patient in room ED 11. I have received report from carley Sanders and had the opportunity to ask questions and assume patient care.
[2020-11-22 10:09] LABS: BASOPHILS % (AUTO) 0.3 % (0-1); EOSINOPHILS # (AUTO) 0.3 X10'3 (0-0.9); EOSINOPHILS % (AUTO) 3.9 % (0-6); HEMATOCRIT 38.1 % (42.0-52.0); HEMOGLOBIN 13.1 g/dl (14.0-17.9); LYMPHOCYTES # (AUTO) 0.7 X10'3 (1.1-4.8); LYMPHOCYTES % (AUTO) 9.3 % (21-51); MEAN CORPUSCULAR HGB CONC 34.5 g/dL (33.0-36.5); MEAN CORPUSCULAR VOLUME 84.1 FL (78-98); MEAN PLATELET VOLUME 6.2 FL (7.4-10.4); MONOCYTES # (AUTO) 0.9 X10'3 (0-0.9); NEUTROPHILS # (AUTO) 5.8 X10'3 (1.8-7.7); NEUTROPHILS % (AUTO) 74.5 % (42-75); PLATELET COUNT 300 X10'3 (140-440); RED BLOOD COUNT 4.53 X10'6 (4.70-6.10); RED CELL DISTRIBUTION WIDTH 17.6 % (11.5-14.5); WHITE BLOOD COUNT 7.7 X10'3 (4.5-11.0)
[2020-11-22 10:28] LABS: ALANINE AMINOTRANSFERASE 30 U/L (12-78); ALBUMIN 2.7 G/DL (3.4-5.0); ALBUMIN/GLOBULIN RATIO 0.6 (1.1-1.5); ALKALINE PHOSPHATASE 84 IU/L (46-116); ANION GAP 9 (8-16); ASPARTATE AMINO TRANSFERASE 20 U/L (10-37); BILIRUBIN,TOTAL 0.7 MG/DL (0.1-1.0); BLOOD UREA NITROGEN 13 MG/DL (7-18); BUN/CREATININE RATIO 12.5 (5.4-32.0); CALCIUM 8.7 MG/DL (8.5-10.1); CHLORIDE 104 MMOL/L (99-107); CREATININE 1.04 MG/DL (0.60-1.10); GLUCOSE 117 MG/DL (70-104); POTASSIUM 3.8 MMOL/L (3.5-5.1); SODIUM 137 MMOL/L (135-145); TOTAL CARBON DIOXIDE 24.3 MMOL/L (24-32); TOTAL PROTEIN 7.6 G/DL (6.4-8.2); eGFR 76 ML/MIN
[2020-11-22] MEDS: cefepime 2g/NS 100ml ADVANTAGE 100 ML IV SCH (10:50)
--- NOTE | 2020-11-22 12:11 | NUR ---
Patient in room YIN 341. I have received report from ANDREA VAN FROM ER and had the opportunity to ask questions and assume patient care.
--- NOTE | 2020-11-22 12:15 | NUR ---
Report given to ANDREA Caceres on the Surg floor.
[2020-11-22 13:00] VITALS: BP 128/85
--- NOTE | 2020-11-22 13:38 | NUR ---
PAGER ID: [phone] MESSAGE: [phone] Shiv Lowe: lab has not even sent the test out yet. It will be sent out today, they said to expect results late Sunday. [email or web address] [phone]
[2020-11-22] MEDS ORDERED: PRED10TA23 PO (14:14)
[2020-11-22] MEDS ORDERED: ALBU8HFA PO (14:14)
[2020-11-22] MEDS ORDERED: LEVO750T46 PO (14:14)
--- NOTE | 2020-11-22 19:12 | NUR ---
PATIENT STABLE AND APPROPRIATE FOR DISCHARGE, IV REMOVED, EDUCATION GIVEN, NEW MEDS E-SCRIPTED TO PREFERRED PHARMACY, ALL BELONGINGS SENT WITH PATIENT, PATIENT TAKEN TO LOBBY BY WHEELCHAIR WHERE FAMILY MEMBER WILL TAKE PATIENT HOME
== END 2020-11-22 15:25 | disposition home or self-care (01) | DRG 720 ==
LOC: ER 13:43 → ED HOLD 17:43 → SUR 3N 11-22 12:20
PROVIDERS: ADMIT Family Medicine; ATTEND Family Medicine
PROC: B32T1ZZ Computerized Tomography (CT Scan) of Left Pulmonary Artery using Low Osmolar Contrast (ICD-10-PCS; principal; 2020-11-20)
PROC: B3201ZZ Computerized Tomography (CT Scan) of Thoracic Aorta using Low Osmolar Contrast (ICD-10-PCS; 2020-11-20)
PROC: B32S1ZZ Computerized Tomography (CT Scan) of Right Pulmonary Artery using Low Osmolar Contrast (ICD-10-PCS; 2020-11-20)
DX: A41.9 Sepsis, unspecified organism (principal); J18.9 Pneumonia, unspecified organism; E66.01 Morbid (severe) obesity due to excess calories; R04.2 Hemoptysis; E87.6 Hypokalemia; E78.00 Pure hypercholesterolemia, unspecified; F10.20 Alcohol dependence, uncomplicated; I10 Essential (primary) hypertension; I48.0 Paroxysmal atrial fibrillation; Z20.822 Contact with and (suspected) exposure to COVID-19; Z88.8 Allergy status to other drugs, medicaments and biological substances; Z68.43 Body mass index [BMI] 50.0-59.9, adult; Z71.41 Alcohol abuse counseling and surveillance of alcoholic
CPT/HCPCS: 36415; 71046; 71275; 80053; 80305; 80320; 83605; 83690; 83735; 83880; 84145; 84443; 84484; 85025; 85379; 85610; 85730; 86480; 87040; 87081; 87635; 93005; 96361; 96365; 99285; C9803; G0378; J0692; J0696; J1940; J7030; Q9967; U0003; U0005

== ENCOUNTER 2023-12-30 16:23 | Inpatient (IN) | payer MEDICAID ==
[~2023-12-30] VITALS: Ht 180.3 cm; Wt 159.1 kg
[~2023-12-30 16:23] MED LIST changes: -AZIT500T9 PO; -GABA-532 PO; -GABA-534 PO; -PROM12.512 PO; +SOTA80TA46 PO; -SOTA80TA73 PO
[2023-12-30] MEDS: LORazepam 2 mg/ml vial IV ONE (16:59)
[2023-12-30] MEDS: ondansetron/PF 4mg/2ml inj IV ONE (16:59)
[2023-12-30] MEDS: diltiazem 5mg/ml 5ml inj. IV ONE (16:59)
[2023-12-30] MEDS: normal saline 1000ML IV soln IV ONE (17:10)
[2023-12-30 17:19] LABS: ALANINE AMINOTRANSFERASE 198 U/L (12-78); ALBUMIN 3.2 G/DL (3.4-5.0); ALBUMIN/GLOBULIN RATIO 0.9 (1.1-1.5); ALKALINE PHOSPHATASE 129 IU/L (46-116); ANION GAP 16 (8-16); ASPARTATE AMINO TRANSFERASE 363 U/L (10-37); BASOPHILS % (AUTO) 0.7 % (0-1); BILIRUBIN,TOTAL 2.3 MG/DL (0.1-1.0); BLOOD UREA NITROGEN 20 MG/DL (7-18); BUN/CREATININE RATIO 12.6 (10.0-20.0); CALCIUM 7.8 MG/DL (8.5-10.1); CHLORIDE 96 MMOL/L (99-107); CREATININE 1.59 MG/DL (0.60-1.10); EOSINOPHILS % (AUTO) 0.6 % (0-6); GLUCOSE 82 MG/DL (70-104); LYMPHOCYTES # (AUTO) 1.6 X10'3 (1.1-4.8); LYMPHOCYTES % (AUTO) 32.4 % (21-51); MEAN CORPUSCULAR HEMOGLOBIN 30.1 PG (27.0-31.0); MEAN CORPUSCULAR HGB CONC 33.4 g/dL (33.0-36.5); MEAN CORPUSCULAR VOLUME 90.1 FL (78-98); MEAN PLATELET VOLUME 7.5 FL (7.4-10.4); MONOCYTES # (AUTO) 0.6 X10'3 (0-0.9); MONOCYTES % (AUTO) 13.1 % (2-12); NEUTROPHILS # (AUTO) 2.6 X10'3 (1.8-7.7); NEUTROPHILS % (AUTO) 53.2 % (42-75); PLATELET COUNT 61 X10'3 (140-440); RED BLOOD COUNT 4.66 X10'6 (4.70-6.10); RED CELL DISTRIBUTION WIDTH 19.6 % (11.5-14.5); SODIUM 133 MMOL/L (135-145); TOTAL CARBON DIOXIDE 21.4 MMOL/L (24-32); TOTAL PROTEIN 6.9 G/DL (6.4-8.2); WHITE BLOOD COUNT 4.9 X10'3 (4.5-11.0); eCRCL 58 ML/MIN; eGFR 46 ML/MIN
[2023-12-30 17:20] LABS: POTASSIUM 4.3 MMOL/L (3.5-5.1)
[2023-12-30 17:26] LABS: PRO BRAIN NATRIURETIC PEPTIDE 2299 PG/ML (0-125)
[2023-12-30 17:27] LABS: ACETAMINOPHEN < 2.0 UG/ML (10-30)
[2023-12-30 17:28] LABS: ETHANOL 454 MG/DL (<10)
[2023-12-30 17:36] LABS: ANISOCYTOSIS 2+; PLATELET ESTIMATE DECREASED; STOMATOCYTES 1+
[2023-12-30] MEDS: thiamine 100mg/ml 2ml inj. IV ONE (18:16)
[2023-12-31] MEDS: sotalol HCl 40mg (1/2 tablet) PO ONE ×2 (03:03→05:37)
[2023-12-31] MEDS ORDERED: acetaminophen 325mg tablet PO PRN ×2 (07:05)
[2023-12-31] MEDS: diltiazem-NS 100mg/100ml 100 ML IV SCH (07:05)
[2023-12-31] MEDS ORDERED: potassium Cl 40MEQ/1/2NS 520ml 520 ML IV PRN (07:05)
[2023-12-31] MEDS: diltiazem 5mg/ml 5ml inj. IV ONE (07:05)
[2023-12-31] MEDS ORDERED: ondansetron/PF 4mg/2ml inj IV PRN (07:05)
[2023-12-31] MEDS ORDERED: magnesium sulf-water 4G/100mL 100 ML IV PRN (07:05)
[2023-12-31] MEDS ORDERED: mag hydrox/Alum hydrox/simeth 30ml oral suspension PO PRN (07:05)
[2023-12-31] MEDS ORDERED: potassium Cl 20 mEq SR tablet PO PRN ×2 (07:05)
[2023-12-31] MEDS ORDERED: magnesium Cl slow-release 64mg tablet PO PRN (07:05)
[2023-12-31] MEDS ORDERED: magnesium sulf-water 2g/50mL 50 ML IV PRN (07:05)
[2023-12-31] MEDS ORDERED: haloperidol lactate 5mg/ml inj IM PRN (07:15)
[2023-12-31 07:33] LABS: BILIRUBIN,URINE MODERATE (Neg); CLARITY,URINE CLEAR (Clear); GLUCOSE, URINE NEGATIVE (Neg); KETONES,URINE 15 mg/dl (Neg); LEUKOCYTE ESTERASE ,URINE NEGATIVE (Neg); NITRITES, URINE NEGATIVE (Neg); OCCULT BLOOD,URINE MODERATE (Neg); PROTEIN,URINE >=300 mg/dl (Neg)
[2023-12-31 07:35] LABS: MAGNESIUM 1.8 MG/DL (1.5-2.4)
[2023-12-31] MEDS: ibuprofen 200mg tablet PO ONE (07:36)
[2023-12-31] MEDS: normal saline 1000ml 1,000 ML IV SCH (07:37)
[2023-12-31 07:38] LABS: COLOR,URINE DARK YELLOW (Yellow); UA COLLECTION TYPE URINAL
[2023-12-31 07:41] LABS: BACTERIA,URINE FEW /HPF (Neg); MUCUS STRANDS MODERATE /LPF (Neg); SQUAMOUS EPITHELIAL CELL,UR FEW /LPF (FEW)
[2023-12-31 07:42] LABS: FINE GRANULAR CAST 0-3 /LPF (NEGATIVE)
[2023-12-31] MEDS: heparin, porcine 5000 units/ml vial SQ SCH (08:35)
[2023-12-31] MEDS ORDERED: diltiazem-NS 100mg/100ml 100 ML IV SCH (08:45)
[2023-12-31 09:01] LABS: LIPASE 60 U/L (16-77)
[2023-12-31] MEDS: thiamine 100mg/ml 2ml inj. IV SCH (09:11)
[2023-12-31] MEDS: multivitamins, therapeutics tablet PO SCH (09:14)
[2023-12-31] MEDS: folic acid 1mg/0.2ml inj IV SCH (09:14)
[2023-12-31] MEDS: HYDROcodone/acetaminophen 10/325mg tab PO PRN (09:14)
[2023-12-31 09:19] LABS: URINE AMPHETAMINE SCREEN NEGATIVE (Neg); URINE BARBITUATE SCREEN NEGATIVE (Neg); URINE BENZODIAZEPINES SCREEN NEGATIVE (Neg); URINE CANNABINOID SCREEN POSITIVE (Neg); URINE COCAINE SCREEN NEGATIVE (Neg); URINE METHADONE SCREEN NEGATIVE (Neg); URINE OPIATE SCREEN NEGATIVE (Neg); URINE PHENCYCLIDINE SCREEN NEGATIVE (Neg)
[2023-12-31 09:24] LABS: HEMOGLOBIN A1C 4.9 % (4.5-6.2)
[2023-12-31] MEDS ORDERED: LIDO700A47 (09:35)
[2023-12-31] MEDS ORDERED: GABA300T28 (09:35)
[2023-12-31 09:36] LABS: CHOL/HDL RATIO 5.2 (0.00-4.99); CHOLESTEROL 203 MG/DL (0-200); HDL CHOLESTEROL 39 MG/DL (35-60); LDL CHOLESTEROL 109 MG/DL (50-100); TRIGLYCERIDES 145 MG/DL (20-135)
[2023-12-31] MEDS ORDERED: iohexol 350MG/ML 100ml bottle IV ONE (10:04)
[2023-12-31 10:30] VITALS: BP 95/63; PULSE 102; RESP 17; TEMP 97.7; O2SAT 97
[2023-12-31] MEDS: morphine 2 MG/ML inj. syringe IV PRN (11:03)
[2023-12-31] MEDS: LORazepam 1 MG tablet PO PRN (13:27)
[2023-12-31 14:00] VITALS: RESP 17; O2SAT 97
[2023-12-31 15:00] VITALS: BP 123/72; PULSE 101; RESP 18; TEMP 97.6; O2SAT 94
[2023-12-31 18:00] VITALS: BP 131/76; PULSE 64; RESP 16; TEMP 97.6; O2SAT 93
[2023-12-31 20:00] VITALS: RESP 16; O2SAT 93
[2023-12-31] MEDS: metoprolol succinate 25mg (24-HOUR) SR. Tablet PO SCH (20:05)
[2023-12-31] MEDS: haloperidol 5mg tablet PO PRN (22:43)
[2024-01-01] VITALS (20 sets, daily range): BP systolic 96–138; BP diastolic 52–108; PULSE 104–160; RESP 12–20; TEMP 97.2–99; O2SAT 94–97
[2024-01-01] MEDS: LORazepam 2 mg/ml vial IV PRN (03:13)
[2024-01-01] MEDS: metoprolol tartrate 1mg/ml inj IV SCH (03:44)
[2024-01-01 07:37] LABS: PROTHROMBIN TIME 10.9 SECONDS (9.0-12.0)
[2024-01-01 07:55] LABS: ALANINE AMINOTRANSFERASE 193 U/L (12-78); ALBUMIN 2.8 G/DL (3.4-5.0); ALBUMIN/GLOBULIN RATIO 0.7 (1.1-1.5); ALKALINE PHOSPHATASE 116 IU/L (46-116); ANION GAP 18 (8-16); ASPARTATE AMINO TRANSFERASE 305 U/L (10-37); BILIRUBIN,TOTAL 3.1 MG/DL (0.1-1.0); BLOOD UREA NITROGEN 15 MG/DL (7-18); CALCIUM 7.4 MG/DL (8.5-10.1); CHLORIDE 96 MMOL/L (99-107); CREATININE 1.25 MG/DL (0.60-1.10); GLUCOSE 75 MG/DL (70-104); LIPASE 46 U/L (16-77); MAGNESIUM 1.6 MG/DL (1.5-2.4); PHOSPHORUS 2.4 MG/DL (2.3-4.5); SODIUM 133 MMOL/L (135-145); TOTAL CARBON DIOXIDE 18.7 MMOL/L (24-32); TOTAL PROTEIN 6.6 G/DL (6.4-8.2); eCRCL 74 ML/MIN; eGFR 61 ML/MIN
[2024-01-01 08:06] LABS: EOSINOPHILS # (AUTO) 0.1 X10'3 (0-0.9); EOSINOPHILS % (AUTO) 2.1 % (0-6); HEMOGLOBIN 13.8 g/dl (14.0-17.9); LYMPHOCYTES # (AUTO) 0.8 X10'3 (1.1-4.8); LYMPHOCYTES % (AUTO) 20.6 % (21-51); NEUTROPHILS # (AUTO) 2.7 X10'3 (1.8-7.7)
[2024-01-01] MEDS: pantoprazole 40mg Tablet.DR PO SCH (08:08)
[2024-01-01 08:09] LABS: BASOPHILS % (AUTO) 0.9 % (0-1); HEMATOCRIT 42.6 % (42.0-52.0); MEAN CORPUSCULAR HGB CONC 32.5 g/dL (33.0-36.5); MEAN CORPUSCULAR VOLUME 92.5 FL (78-98); MEAN PLATELET VOLUME 7.1 FL (7.4-10.4); MONOCYTES # (AUTO) 0.3 X10'3 (0-0.9); MONOCYTES % (AUTO) 8.5 % (2-12); NEUTROPHILS % (AUTO) 67.9 % (42-75); PLATELET COUNT 52 X10'3 (140-440); RED BLOOD COUNT 4.61 X10'6 (4.70-6.10); RED CELL DISTRIBUTION WIDTH 19.3 % (11.5-14.5); WHITE BLOOD COUNT 4.1 X10'3 (4.5-11.0)
[2024-01-01] MEDS: morphine 2 MG/ML inj. syringe IV PRN (08:20)
[2024-01-01] MEDS: diltiazem 5mg/ml 5ml inj. IV ONE (11:12)
[2024-01-01] MEDS: HYDROcodone/acetaminophen 5mg/325mg tablet PO PRN (11:14)
[2024-01-01] MEDS: diltiazem-NS 100mg/100ml 100 ML IV SCH (12:00)
[2024-01-01 12:20] LABS: THYROID STIMULATING HORMONE 6.33 ulU/ml (0.34-4.50)
[2024-01-01] MEDS ORDERED: carVEDilol 3.125mg tablet PO SCH (20:00)
[2024-01-02] VITALS (11 sets, daily range): BP systolic 108–143; BP diastolic 70–103; PULSE 103–140; RESP 13–19; TEMP 97.4–97.8; O2SAT 97–98
[2024-01-02 07:53] LABS: BASOPHILS % (AUTO) 0.8 % (0-1); EOSINOPHILS # (AUTO) 0.1 X10'3 (0-0.9); EOSINOPHILS % (AUTO) 2.4 % (0-6); HEMATOCRIT 41.1 % (42.0-52.0); HEMOGLOBIN 13.7 g/dl (14.0-17.9); LYMPHOCYTES # (AUTO) 0.7 X10'3 (1.1-4.8); LYMPHOCYTES % (AUTO) 20.7 % (21-51); MEAN CORPUSCULAR HEMOGLOBIN 30.8 PG (27.0-31.0); MEAN CORPUSCULAR HGB CONC 33.3 g/dL (33.0-36.5); MEAN CORPUSCULAR VOLUME 92.6 FL (78-98); MEAN PLATELET VOLUME 6.9 FL (7.4-10.4); MONOCYTES # (AUTO) 0.3 X10'3 (0-0.9); NEUTROPHILS # (AUTO) 2.3 X10'3 (1.8-7.7); NEUTROPHILS % (AUTO) 68.1 % (42-75); PLATELET COUNT 58 X10'3 (140-440); RED BLOOD COUNT 4.44 X10'6 (4.70-6.10); RED CELL DISTRIBUTION WIDTH 19.7 % (11.5-14.5); WHITE BLOOD COUNT 3.4 X10'3 (4.5-11.0)
[2024-01-02 07:57] LABS: INR 1.1 INR; PROTHROMBIN TIME 11.1 SECONDS (9.0-12.0)
[2024-01-02 08:00] LABS: ALANINE AMINOTRANSFERASE 185 U/L (12-78); ALBUMIN/GLOBULIN RATIO 0.8 (1.1-1.5); ALKALINE PHOSPHATASE 125 IU/L (46-116); ANION GAP 14 (8-16); ASPARTATE AMINO TRANSFERASE 277 U/L (10-37); BILIRUBIN,TOTAL 2.4 MG/DL (0.1-1.0); BLOOD UREA NITROGEN 13 MG/DL (7-18); BUN/CREATININE RATIO 10.8 (10.0-20.0); CALCIUM 7.9 MG/DL (8.5-10.1); CHLORIDE 98 MMOL/L (99-107); GLUCOSE 92 MG/DL (70-104); LIPASE 41 U/L (16-77); MAGNESIUM 1.6 MG/DL (1.5-2.4); PHOSPHORUS 2.6 MG/DL (2.3-4.5); POTASSIUM 3.8 MMOL/L (3.5-5.1); SODIUM 135 MMOL/L (135-145); TOTAL CARBON DIOXIDE 23.5 MMOL/L (24-32); TOTAL PROTEIN 6.6 G/DL (6.4-8.2); eCRCL 77 ML/MIN; eGFR 64 ML/MIN
[2024-01-02] MEDS ORDERED: atenolol 25mg tablet PO SCH (10:25)
[2024-01-02] MEDS ORDERED: IBUP-1984 PO (18:25)
[2024-01-03 05:41] LABS: HBSAG SCREEN Negative (Negative); HEP B CORE AB, IGM Negative (Negative); HEP B CORE AB, TOT Negative (Negative); HEP B SURF AB Non Reactive (.)
[2024-01-03] MEDS ORDERED: thiamine 100mg tablet PO SCH (08:00)
[2024-01-04] MEDS ORDERED: folic acid 1mg tablet PO SCH (08:00)
== END 2024-01-02 11:30 | disposition left against medical advice (07) | DRG 201 ==
LOC: ER 16:24 → ED HOLD 12-31 07:10 → PCU 3S 12-31 10:33
PROVIDERS: ADMIT Internal Medicine; ATTEND Internal Medicine
PROC: BW211ZZ Computerized Tomography (CT Scan) of Abdomen and Pelvis using Low Osmolar Contrast (ICD-10-PCS; principal; 2023-12-31)
DX: I48.91 Unspecified atrial fibrillation (principal); K70.9 Alcoholic liver disease, unspecified; E66.9 Obesity, unspecified; E78.00 Pure hypercholesterolemia, unspecified; F10.129 Alcohol abuse with intoxication, unspecified; Z91.148 Patient's other noncompliance with medication regimen for other reason; Z68.42 Body mass index [BMI] 45.0-49.9, adult; Z53.29 Procedure and treatment not carried out because of patient's decision for other reasons
CPT/HCPCS: 36415; 71045; 74177; 80053; 80061; 80305; 80320; 80329; 81001; 83036; 83690; 83735; 83880; 84100; 84443; 84484; 85008; 85025; 85610; 86704; 86705; 86706; 87081; 87088; 87340; 93005; 93306; 99291; A4615; A6590; G0378; J1644; J2060; J2270; J2405; J3411; J3490; J7030; Q9967

== ENCOUNTER 2024-01-02 16:41 | Inpatient (IN) | payer MEDICAID ==
[~2024-01-02] VITALS: Ht 180.3 cm; Wt 154.6 kg
[~2024-01-02 16:41] MED LIST changes: -APIX5TAB3 PO; -CHLO25CA10 PO; +GABA300T28; -IBUP-1986 PO; +LIDO700A47; -SOTA80TA46 PO
[2024-01-02] MEDS ORDERED: IBUP-1984 PO (18:25)
[2024-01-02 19:25] LABS: BASOPHILS % (AUTO) 0.8 % (0-1); HEMATOCRIT 42.1 % (42.0-52.0); HEMOGLOBIN 14.2 g/dl (14.0-17.9); LYMPHOCYTES # (AUTO) 0.7 X10'3 (1.1-4.8); LYMPHOCYTES % (AUTO) 16.3 % (21-51); MEAN CORPUSCULAR HEMOGLOBIN 31.4 PG (27.0-31.0); MEAN CORPUSCULAR HGB CONC 33.8 g/dL (33.0-36.5); MEAN CORPUSCULAR VOLUME 92.9 FL (78-98); MEAN PLATELET VOLUME 6.8 FL (7.4-10.4); MONOCYTES # (AUTO) 0.5 X10'3 (0-0.9); MONOCYTES % (AUTO) 10.7 % (2-12); NEUTROPHILS # (AUTO) 3.2 X10'3 (1.8-7.7); NEUTROPHILS % (AUTO) 71.2 % (42-75); PLATELET COUNT 78 X10'3 (140-440); RED BLOOD COUNT 4.53 X10'6 (4.70-6.10); WHITE BLOOD COUNT 4.5 X10'3 (4.5-11.0)
[2024-01-02 19:42] LABS: ALANINE AMINOTRANSFERASE 205 U/L (12-78); ALBUMIN 3.3 G/DL (3.4-5.0); ALBUMIN/GLOBULIN RATIO 0.8 (1.1-1.5); ALKALINE PHOSPHATASE 141 IU/L (46-116); ANION GAP 15 (8-16); ASPARTATE AMINO TRANSFERASE 256 U/L (10-37); BILIRUBIN,TOTAL 2.4 MG/DL (0.1-1.0); BLOOD UREA NITROGEN 12 MG/DL (7-18); BUN/CREATININE RATIO 9.2 (10.0-20.0); CALCIUM 8.6 MG/DL (8.5-10.1); CHLORIDE 100 MMOL/L (99-107); GLUCOSE 84 MG/DL (70-104); POTASSIUM 4.3 MMOL/L (3.5-5.1); SODIUM 141 MMOL/L (135-145); TOTAL CARBON DIOXIDE 25.6 MMOL/L (24-32); TOTAL PROTEIN 7.2 G/DL (6.4-8.2); eCRCL 71 ML/MIN; eGFR 58 ML/MIN
[2024-01-02 19:49] LABS: PRO BRAIN NATRIURETIC PEPTIDE 2225 PG/ML (0-125)
[2024-01-02] MEDS ORDERED: magnesium sulf-water 2g/50mL 50 ML IV PRN (21:50)
[2024-01-02] MEDS ORDERED: magnesium Cl slow-release 64mg tablet PO PRN (21:50)
[2024-01-02] MEDS ORDERED: acetaminophen 325mg tablet PO PRN (21:50)
[2024-01-02] MEDS ORDERED: magnesium hydroxide 30ml (MOM) UD suspension PO PRN (21:50)
[2024-01-02] MEDS ORDERED: potassium Cl 40MEQ/1/2NS 520ml 520 ML IV PRN (21:50)
[2024-01-02] MEDS ORDERED: magnesium sulf-water 4G/100mL 100 ML IV PRN (21:50)
[2024-01-02] MEDS ORDERED: mag hydrox/Alum hydrox/simeth 30ml oral suspension PO PRN (21:50)
[2024-01-02] MEDS ORDERED: potassium Cl 20 mEq SR tablet PO PRN ×2 (21:50)
[2024-01-02] MEDS ORDERED: ondansetron/PF 4mg/2ml inj IV PRN (21:50)
[2024-01-02] MEDS ORDERED: LORazepam 2 mg/ml vial IV PRN (22:00)
[2024-01-02 22:01] LABS: URINE AMPHETAMINE SCREEN NEGATIVE (Neg); URINE BARBITUATE SCREEN NEGATIVE (Neg); URINE BENZODIAZEPINES SCREEN NEGATIVE (Neg); URINE CANNABINOID SCREEN POSITIVE (Neg); URINE COCAINE SCREEN NEGATIVE (Neg); URINE METHADONE SCREEN NEGATIVE (Neg); URINE OPIATE SCREEN POSITIVE (Neg); URINE PHENCYCLIDINE SCREEN NEGATIVE (Neg)
[2024-01-02 22:15] LABS: MAGNESIUM 1.9 MG/DL (1.5-2.4)
[2024-01-02 22:19] VITALS: TEMP 98.2
[2024-01-02] MEDS: LORazepam 2 mg/ml vial IV PRN (23:24)
[2024-01-02] MEDS: metoprolol tartrate 1mg/ml inj IV SCH (23:45)
[2024-01-03] MEDS: normal saline 500ml IV soln 500 ML IV ONE (00:35)
[2024-01-03] MEDS: haloperidol lactate 5mg/ml inj IM PRN (02:05)
[2024-01-03] MEDS ORDERED: phenoBARBITAL inj 130 MG in normal saline 100ml IV soln 99 ML IV ONE (03:30)
[2024-01-03] MEDS: phenoBARBITAL sod 130mg/ml inj. IV ONE (03:50)
[2024-01-03 03:59] LABS: ETHANOL < 10 MG/DL (<10)
[2024-01-03] MEDS: diltiazem-NS 100mg/100ml 100 ML IV SCH (04:31)
[2024-01-03] MEDS ORDERED: normal saline 1000ml 1,000 ML IV SCH (05:10)
[2024-01-03 06:55] VITALS: BP 155/85; PULSE 121; RESP 25; O2SAT 95
[2024-01-03] MEDS ORDERED: thiamine 100mg/ml 2ml inj. IV SCH (08:00)
[2024-01-03] MEDS ORDERED: heparin, porcine 5000 units/ml vial SQ SCH (08:00)
[2024-01-03] MEDS ORDERED: folic acid 1mg/0.2ml inj IV SCH (08:00)
[2024-01-03] MEDS ORDERED: docusate sod 100mg capsule PO SCH (08:00)
[2024-01-03] MEDS ORDERED: multivitamins, therapeutics tablet PO SCH (08:00)
[2024-01-03] MEDS ORDERED: pantoprazole 40 MG vial IV SCH (08:00)
[2024-01-03] MEDS ORDERED: metoprolol succinate 25mg (24-HOUR) SR. Tablet PO SCH (08:00)
[2024-01-03] MEDS ORDERED: K and/or MAG REPLACEMENT MC SCH (08:00)
== END 2024-01-03 07:30 | disposition left against medical advice (07) | DRG 201 ==
LOC: ER 16:42 → ED HOLD 21:56
PROVIDERS: ADMIT Internal Medicine Critical Care Medicine; ATTEND Internal Medicine Critical Care Medicine
DX: I48.91 Unspecified atrial fibrillation (principal); F10.231 Alcohol dependence with withdrawal delirium; K70.10 Alcoholic hepatitis without ascites; E78.00 Pure hypercholesterolemia, unspecified; G89.29 Other chronic pain; M54.9 Dorsalgia, unspecified; Z53.21 Procedure and treatment not carried out due to patient leaving prior to being seen by health care provider; Z88.1 Allergy status to other antibiotic agents
CPT/HCPCS: 36415; 71045; 80053; 80305; 80320; 83735; 83880; 84132; 84484; 85025; 93005; 99285; A4615; A4620; G0378; J1630; J2060; J2560; J3490